=== PATIENT | male | born 1965 | race Caucasian/White ===

== ENCOUNTER 2017-01-23 07:34 | Day surgery (SDC) | payer OTHER ==
--- NOTE | 2016-12-13 17:46 | PREOP ---
DATE OF ADMISSION: Date to be determined DATE OF DICTATION: 12/13/2016 HISTORY OF PRESENT ILLNESS: This is a 51-year-old man admitted through the [facility] for bilateral laparoscopic inguinal hernia repair with mesh. The patient recently had developed a URI and was coughing and went on to develop a bulge at the level of the right groin. On examination, he has an obvious reducible right inguinal hernia. He also has a small left inguinal hernia. He presents for bilateral laparoscopic inguinal hernia surgery. No underlying GI, , or chronic respiratory complaints to suggest predisposition to hernia formation. PAST MEDICAL HISTORY: Significant for hypertension only. No diabetes, heart disease, respiratory, renal, or hepatic insufficiency. The patient has had a bout of diverticulitis in 2014, which responded to antibiotics. ALLERGIES: None known. REGULAR MEDICATIONS: Quinapril, atenolol, omeprazole, baby aspirin. SOCIAL HISTORY: Negative tobacco. The patient did smoke up until 2 months ago. Negative alcohol. FAMILY HISTORY: Father age 54 secondary to brain neoplasia. Mother secondary to gallbladder cancer. Siblings x1 in good health. REVIEW OF SYSTEMS: Nil. PHYSICAL EXAMINATION: Patient was examined in erect and supine positions. There is an obvious reducible right inguinal hernia which is moderate to large in size. There is significant attenuation on the left with a suggestion of an early left hernia as well. Testes unremarkable. IMPRESSION: Bilateral inguinal hernias, right larger and symptomatic. PLAN: Bilateral laparoscopic inguinal hernia repair with mesh. Possible open right repair. Indications, alternatives, and possible complications related to the procedure and placement of mesh reviewed with patient. Consent obtained. The patient was seen preoperatively by Dr. Gary Collins. Please refer to those notes for those medical details. CINDY GAMBLE M.D. [id number] CC: Gary Collins MD
[2017-01-16 12:25] VITALS: BMI 29.0
[2017-01-23] MEDS ORDERED: TAMSULOSIN HCL 0.4 MG CAP.ER.24H (FP) ONE (08:18)
[2017-01-23] MEDS ORDERED: ePHEDrine SULFATE 50 MG/1 ML AMPULE ONE (08:25)
[2017-01-23] MEDS ORDERED: SUCCINYLCHOLINE CHLORIDE 200 MG/10 ML VIAL ONE (08:26)
[2017-01-23] MEDS ORDERED: ROCURONIUM BROMIDE 50 MG/5 ML VIAL ONE ×4 (08:26→08:28)
[2017-01-23] MEDS ORDERED: ceFAZolin SODIUM 1 GM VIAL ONE ×2 (08:26)
[2017-01-23] MEDS ORDERED: MIDAZOLAM HCL 2 MG/2 ML SINGLE DOSE VIAL ONE ×2 (08:26)
[2017-01-23] MEDS ORDERED: PROPOFOL 20 ML ONE ×2 (08:26)
[2017-01-23] MEDS ORDERED: FLUMAZENIL 0.5 MG/5 ML VIAL ONE (08:28)
[2017-01-23] MEDS ORDERED: SODIUM CHLORIDE 0.9% P/F 10 ML VIAL IJ ONE (08:29)
[2017-01-23] MEDS ORDERED: DESFLURANE GAS 240 ML BOTTLE IH ONE (08:30)
[2017-01-23] MEDS ORDERED: ACETAMINOPHEN INJECTION 100 ML IVPB ONE (08:48)
[2017-01-23] MEDS ORDERED: GLYCOPYRROLATE 0.2 MG/1 ML VIAL ONE (09:31)
[2017-01-23] MEDS ORDERED: NEOSTIGMINE METHYLSULFATE 0.5 MG/ML - 10 ML MDV ONE (09:32)
[2017-01-23] MEDS ORDERED: ONDANSETRON 4 MG/2 ML VIAL ONE ×2 (09:34→10:46)
[2017-01-23] MEDS ORDERED: KETOROLAC TROMETHAMINE 30 MG/1 ML VIAL ONE (09:44)
[2017-01-23] MEDS ORDERED: ONDANSETRON 4 MG/2 ML VIAL IVPUSH PRN (10:27)
[2017-01-23] MEDS ORDERED: oxyCODONE HCL 5 MG TABLET PO PRN (10:27)
[2017-01-23] MEDS ORDERED: PROMETHAZINE HCL 25 MG/1 ML VIAL IVPUSH PRN (10:27)
[2017-01-23] MEDS ORDERED: LACTATED RINGERS SOLUTION 1,000 ML IV SCH (10:30)
[2017-01-23 11:32] VITALS: TEMP 98
[2017-01-23] MEDS ORDERED: oxyCODONE HCL 5 MG TABLET ONE (11:39)
--- NOTE | 2017-01-23 11:58 | OP ---
DATE OF OPERATION: 01/23/2017 PREOPERATIVE DIAGNOSIS: Bilateral inguinal hernias. POSTOPERATIVE DIAGNOSIS: Bilateral indirect inguinal hernias. PROCEDURE: Bilateral laparoscopic inguinal hernia repair with mesh. OPERATING SURGEON: Cindy Meza MD LIME SLUDGE MIXER: Judson Causey MD ANESTHESIA: Dr. Luis HISTORY: A 51-year-old man admitted to the hospital for bilateral laparoscopic inguinal hernia repair with mesh. Indications, alternatives, and possible complications reviewed. Consent obtained. PROCEDURE: With the patient in the supine position, under general anesthesia, the abdomen was prepped and draped in sterile fashion using chlorhexidine. A small incision was made just beneath the umbilicus and off to the right of the midline. The subcutaneous tissues were divided, ultimately reaching the right anterior rectus sheath. The sheath was incised. The rectus muscle fibers were retracted laterally in both directions, exposing the preperitoneal space. Under direct vision, a dissecting balloon was advanced into the preperitoneal space towards the pubis. The balloon was insufflated, creating a dissection. The balloon was removed, leaving a structural collar in place. Preperitoneal space was insufflated to an adequate pressure volume using CO2 gas. The camera lens was passed through this port and the preperitoneal space visualized. Under direct vision, an 11-mm port was placed in the midline midway between the umbilicus and the pubis. The operating instruments were passed through this port. Exploration of the preperitoneal space allowed recognition of the anatomy. Bilateral indirect inguinal hernias were noted with the right larger than the left in size. There were no direct or femoral components noted on either side. First directing our attention to the smaller hernia on the left, the cord was skeletonized of its cremasteric fibers and the sac was reduced. The left side was repaired using a piece of 4-inch by 6-inch Parietek mesh. The mesh was keyholed and placed in the preperitoneal space. It was tacked in place with counterpalpation and AbsorbaTacker. The mesh was tacked anteriorly to the anterior abdominal wall. The mesh was tacked superiorly to the iliopubic tract. The mesh was tacked inferiorly to Feliciano ligament and the pubic tubercle. The keyhole leaf was wrapped around the cord and tacked in place, reconstructing the internal ring. Now directing our attention to the right side, again the cord was skeletonized of its cremasteric fibers and the larger indirect component reduced. The right side was repaired with the same mesh and technique as described above for the left. At the completion of the repair, the mesh was noted to overlap in the midline. Adequate hemostasis was ensured. Midline port was removed under direct vision and no bleeding identified. Ultimately, the umbilical port and structural collar were removed and the gas was allowed to escape from the preperitoneal space. The fascia at each of the ports was closed with interrupted No. 1 Vicryl sutures. Both wounds were closed using fascial 0 Vicryl sutures. Skin edges were approximated using subcuticular 4-0 Biosyn sutures. Dermabond applied. Procedure terminated. INSTRUMENT AND SPONGE COUNT: Correct. ESTIMATED BLOOD LOSS: Minimal. SPECIMEN: None. Patient tolerated the procedure and the procedure was terminated. CINDY MEZA M.D. [id number]
[2017-01-23 15:03] VITALS: BP 121/64; PULSE 71
== END 2017-01-23 13:10 | disposition home or self-care (01) ==
LOC: FASU 07:34
PROVIDERS: ATTEND Surgery
PROC: 0YUA4JZ Supplement Bilateral Inguinal Region with Synthetic Substitute, Percutaneous Endoscopic Approach (ICD-10-PCS; principal; 2017-01-23 08:58)
DX: K40.20 Bilateral inguinal hernia, without obstruction or gangrene, not specified as recurrent (principal)
CPT/HCPCS: 94760

== ENCOUNTER 2021-08-22 07:53 | Day surgery (SDC) | payer OTHER ==
[2021-08-19 12:27] VITALS: BMI 31.9
[2021-08-22] MEDS ORDERED: LIDOCAINE HCL/PF 2% SDV 5ML VIAL ONE (08:09)
[2021-08-22] MEDS ORDERED: PROPOFOL 20 ML ONE (08:09)
[2021-08-22 09:24] VITALS: TEMP 98
[2021-08-22 09:25] VITALS: BP 124/78; PULSE 70
== END 2021-08-22 09:35 | disposition home or self-care (01) ==
LOC: FASU-ENDO 07:53
PROVIDERS: ATTEND Internal Medicine Gastroenterology
PROC: 0DJD8ZZ Inspection of Lower Intestinal Tract, Via Natural or Artificial Opening Endoscopic (ICD-10-PCS; principal; 2021-08-22 08:49)
DX: Z12.11 Encounter for screening for malignant neoplasm of colon (principal); Z83.71 Family history of colonic polyps; K57.30 Diverticulosis of large intestine without perforation or abscess without bleeding

== ENCOUNTER 2022-03-18 16:27 | Emergency (ER) | payer OTHER ==
[2022-03-18 16:49] VITALS: BP 136/95; PULSE 80; RESP 18; TEMP 98; BMI 31.1
== END 2022-03-18 17:16 | disposition home or self-care (01) ==
LOC: FER 16:27
DX: G43.109 Migraine with aura, not intractable, without status migrainosus (principal)
CPT/HCPCS: 99283-25

== ENCOUNTER 2022-07-09 16:21 | Emergency (ER) | payer OTHER ==
[2022-07-09] MEDS ORDERED: DIPHTH,PERTUSS(ACELL),TET 0.5 ML DISP.SYRIN IM ONE ×2 (16:37→17:22)
[2022-07-09 16:49] VITALS: BP 127/69; PULSE 111; RESP 18; TEMP 98.2; BMI 30.9
== END 2022-07-09 17:45 | disposition home or self-care (01) ==
LOC: FER 16:21
PROC: 0HQFXZZ Repair Right Hand Skin, External Approach (ICD-10-PCS; principal; 2022-07-09)
PROC: 3E0234Z Introduction of Serum, Toxoid and Vaccine into Muscle, Percutaneous Approach (ICD-10-PCS; 2022-07-09)
DX: S61.210A Laceration without foreign body of right index finger without damage to nail, initial encounter (principal); W26.8XXA Contact with other sharp object(s), not elsewhere classified, initial encounter
CPT/HCPCS: 73130-TC-RT-FY; 99284-25

== ENCOUNTER 2023-06-17 15:12 | Emergency (ER) | payer OTHER ==
[2023-06-17 15:22] VITALS: BP 151/87; PULSE 69; RESP 17; TEMP 97.9; BMI 31.6
== END 2023-06-17 16:33 | disposition home or self-care (01) ==
LOC: FER 15:12
DX: S09.90XA Unspecified injury of head, initial encounter (principal); W00.0XXA Fall on same level due to ice and snow, initial encounter; W01.198A Fall on same level from slipping, tripping and stumbling with subsequent striking against other object, initial encounter
CPT/HCPCS: 70450-TC; 99284-25